=== PATIENT | male | born 1940 | race Caucasian/White ===

== ENCOUNTER 2023-11-16 05:12 | Day surgery (SDC) | payer OTHER, BC ==
[2023-11-13 12:01] VITALS: BMI 30.1
[2023-11-16 07:20] VITALS: RESP 18
[2023-11-16] MEDS ORDERED: MIDAZOLAM HCL 2 MG/2 ML SINGLE DOSE VIAL ONE (08:52)
[2023-11-16 13:16] VITALS: BP 138/61; PULSE 59; TEMP 98
[2023-11-16] MEDS: LORATADINE 10 MG TABLET PO ONE (13:17)
== END 2023-11-16 10:56 | disposition home or self-care (01) ==
LOC: JASU-SURG 05:12
PROVIDERS: ATTEND Urology
PROC: 0TF3XZZ Fragmentation in Right Kidney Pelvis, External Approach (ICD-10-PCS; principal; 2023-11-16 09:01)
DX: N20.0 Calculus of kidney (principal)